=== PATIENT | female | born 1960 | race Two or more races ===

== ENCOUNTER 2018-11-26 12:18 | Emergency (ER) | payer BC, OTHER ==
[2018-11-26 12:27] VITALS: BMI 28.8
--- NOTE | 2018-11-26 13:39 | PDOC ---
History of Present Illness - General Chief Complaint: Psychiatric Stated Complaint: PCP SENT/BP PROBLEM Time Seen by Provider: 11/26/18 13:38 - History of Present Illness Initial Comments: 11/26/18 13:38 The patient denies chest pain, shortness of breath, headache and dizziness. Denies fever, chills, nausea, vomit, diarrhea and constipation. Denies dysuria, frequency, urgency and hematuria. Past History - Past Medical History Allergies/Adverse Reactions: Allergies Allergy/AdvReac Type Severity Reaction Status Date / Time Penicillins Allergy Verified 11/26/18 13:15 Sulfa (Sulfonamide Allergy Verified 11/26/18 13:15 Antibiotics) Home Medications: Ambulatory Orders NK [No Known Home Medication] 11/26/18 COPD: No - Suicide/Smoking/Psychosocial Hx Smoking History: Never smoked Review of Systems - Review of Systems Comments:: 11/26/18 13:38 GENERAL/CONSTITUTIONAL: No fever or chills. No weakness. HEAD, EYES, EARS, NOSE AND THROAT: No change in vision. No ear pain or discharge. No sore throat. CARDIOVASCULAR: No chest pain or shortness of breath RESPIRATORY: No cough, wheezing, or hemoptysis. GASTROINTESTINAL: No nausea, vomiting, diarrhea or constipation. GENITOURINARY: No dysuria, frequency, or change in urination. MUSCULOSKELETAL: No joint or muscle swelling or pain. No neck or back pain. SKIN: No rash NEUROLOGIC: No headache, vertigo, loss of consciousness, or change in strength/ sensation. ENDOCRINE: No increased thirst. No abnormal weight change HEMATOLOGIC/LYMPHATIC: No anemia, easy bleeding, or history of blood clots. ALLERGIC/IMMUNOLOGIC: No hives or skin allergy. *Physical Exam - Vital Signs Last Vital Signs Temp Pulse Resp BP Pulse Ox 98.1 F 115 H 26 H 178/107 H 99 11/26/18 12:26 11/26/18 12:26 11/26/18 12:26 11/26/18 12:26 11/26/18 12:26 - Physical Exam Comments: 11/26/18 13:38 GENERAL: Awake, alert, and fully oriented, in no acute distress HEAD: No signs of trauma, normocephalic, atraumatic EYES: PERRLA, EOMI, sclera anicteric, conjunctiva clear ENT: Auricles normal inspection, hearing grossly normal, nares patent, oropharynx clear without exudates. Moist mucosa NECK: Normal ROM, supple, no lymphadenopathy, JVD, or masses LUNGS: No distress, speaks full sentences, clear to auscultation bilaterally HEART: Regular rate and rhythm, normal S1 and S2, no murmurs, rubs or gallops, peripheral pulses normal and equal bilaterally. ABDOMEN: Soft, nontender, normoactive bowel sounds. No guarding, no rebound. No masses EXTREMITIES: Normal inspection, Normal range of motion, no edema. No clubbing or cyanosis. NEUROLOGICAL: Cranial nerves II through XII grossly intact. Normal speech, normal gait, no focal sensorimotor deficits SKIN: Warm, Dry, normal turgor, no rashes or lesions noted. *DC/Admit/Observation/Transfer - Referrals Referrals: ON STAFF,NOT [Primary Care Provider] - - Patient Instructions - Post Discharge Activity
[2018-11-26] MEDS ORDERED: ALPRAZolam 0.25 MG TABLET PO ONE (14:39)
[2018-11-26] MEDS ORDERED: ALPRAZolam 0.25 MG TABLET ONE (14:57)
[2018-11-26 15:04] LABS: BASO % 0.5 % (0-2.0); EOS % 0.7 % (0-4.5); HEMATOCRIT 37.5 % (32.4-45.2); HEMOGLOBIN 12.4 GM/dL (10.7-15.3); LYMPH % 20.8 % (8-40); MCH 29.4 pg (25.7-33.7); MEAN CELL VOLUME 89.2 fl (80-96); MEAN PLT VOLUME 8.3 fl (7.5-11.1); MONO % 5.4 % (3.8-10.2); NEUT % 72.6 % (42.8-82.8); PLATELET COUNT 258 K/MM3 (134-434); RBC 4.21 M/mm3 (3.60-5.2); RDW 14.5 % (11.6-15.6)
[2018-11-26 15:16] LABS: ALBUMIN 4.3 g/dl (3.4-5.0); BILIRUBIN,TOTAL 0.4 mg/dL (0.2-1); CALCIUM 9.4 mg/dL (8.5-10.1); CREATININE 0.8 mg/dL (0.55-1.3); POTASSIUM 3.6 mmol/L (3.5-5.1); TOT PROT 7.4 g/dl (6.4-8.2)
--- NOTE | 2018-11-26 15:58 | PDOC ---
Documentation entered by Rema James SCRIBE, acting as scribe for Sreedhar Montoya MD. Sreedhar Montoya MD: This documentation has been prepared by the Erika dukes Nirvannie, SCRIBE, under my direction and personally reviewed by me in its entirety. I confirm that the documentation accurately reflects all work, treatment, procedures, and medical decision making performed by me. History of Present Illness - General Chief Complaint: Psychiatric Stated Complaint: PCP SENT/BP PROBLEM Time Seen by Provider: 11/26/18 13:38 History Source: Patient Exam Limitations: No Limitations - History of Present Illness Initial Comments: 11/26/18 15:27 The patient is a 58 year old female, with no significant past medical history, who presents to the emergency department with, elevated blood pressure and increased anxiety. As per patient, last night she began feeling lightheaded, nauseous, palpitations, tremors, and short of breath. She notes her symptoms were similar to previous panic attacks (approx. 50/lifetime), however, she went to urgent care for further evaluation. Patient was advised at urgent care to report to the ED for further evaluation secondary to elevated blood pressure ( 180/100s). She notes increased anxiety over the past week secondary to her mother being sick. She denies any chest pain, fever, chills, urinary/bowel incontinence, or change in strength/sensation. Allergies: NKDA Social history: Visiting from [place]. Past History - Past Medical History Allergies/Adverse Reactions: Allergies Allergy/AdvReac Type Severity Reaction Status Date / Time Penicillins Allergy Verified 11/26/18 13:15 Sulfa (Sulfonamide Allergy Verified 11/26/18 13:15 Antibiotics) Home Medications: Ambulatory Orders NK [No Known Home Medication] 11/26/18 COPD: No - Suicide/Smoking/Psychosocial Hx Smoking History: Never smoked Review of Systems - Review of Systems Able to Perform ROS?: Yes Comments:: 11/26/18 15:28 CONSTITUTIONAL: No reported: Fever, Chills, Diaphoresis, Generalized Weakness, Malaise, Loss of Appetite HEENT: No reported: Rhinorrhea, Nasal Congestion, Throat Pain, Throat Swelling, Difficulty Swallowing, Mouth Swelling, Ear Pain, Eye Pain, Visual Changes CARDIOVASCULAR: Present: Palpitations No reported: Chest Pain, Syncope, Irregular Heart Rate, Lightheadedness, Peripheral Edema RESPIRATORY: Present: Shortness of Breath No reported: Cough, SOB with Exertion, Orthopnea, Wheezing, Stridor, Hemoptysis GASTROINTESTINAL: Present: Nausea No reported: Abdominal pain, Abdominal Distension,Vomiting, Diarrhea, Constipation, Melena, Hematochezia GENITOURINARY: No reported: Dysuria, Frequency, Urgency, Hesitancy, Flank Pain, Genital Pain MUSCULOSKELETAL: No reported: Myalgia, Arthralgia, Joint Swelling, Back pain, Neck Pain SKIN: No reported: Rash, Itching, Pallor HEMEATOLOGIC/IMMUNOLOGIC: No reported: Easy Bleeding, Easy Bruising, Lymphadenopathy, Frequent infections ENDOCRINE: No reported: Unexplained Weight Gain, Unexplained Weight Loss, Heat Intolerance , Cold Intolerance NEUROLOGIC: Present: +Lightheadedness No reported: Headache, Focal Weakness, Paresthesias, Vertigo, Unsteady Gait, Seizure, Mental Status Changes, Incontinence PSYCHIATRIC: No reported: Anxiety, Depression All Other Systems: Reviewed and Negative *Physical Exam - Vital Signs Last Vital Signs Temp Pulse Resp BP Pulse Ox 98.1 F 115 H 26 H 178/107 H 99 11/26/18 12:26 11/26/18 12:26 11/26/18 12:26 11/26/18 12:26 11/26/18 12:26 - Physical Exam Comments: 11/26/18 15:30 GENERAL: The patient is awake, alert, and fully oriented, Nontoxic - in no acute distress. HEAD: Normocephalic, atraumatic. EYES: extraocular movements intact, sclera anicteric, conjunctiva clear. ENT: Normal voice, Moist mucous membranes. NECK: Normal range of motion, supple LUNGS: Breath sounds equal, clear to auscultation bilaterally. No wheezes, no rhonchi, no rales. HEART: Regular rate and rhythm, without murmur, rub or gallop. ABDOMEN: Soft, nontender, No guarding, no rebound.No CVA tenderness EXTREMITIES: Normal range of motion, no edema. No cyanosis. No erythema, or tenderness. NEUROLOGICAL: No facial assymetry, Normal speech, PSYCH: Normal mood, normal affect. SKIN: Warm, Dry, normal turgor, ED Treatment Course - LABORATORY CBC & Chemistry Diagram: 11/26/18 14:41 11/26/18 14:41 - ADDITIONAL ORDERS Additional order review: Laboratory Results 11/26/18 14:41 Sodium 141 Potassium 3.6 Chloride 106 Carbon Dioxide 29 Anion Gap 7 L BUN 15 Creatinine 0.8 Est GFR (CKD-EPI)AfAm 92.87 Est GFR (CKD-EPI)NonAf 80.13 Random Glucose 98 Calcium 9.4 Total Bilirubin 0.4 AST 14 L ALT 23 Alkaline Phosphatase 99 Total Protein 7.4 Albumin 4.3 11/26/18 14:41 RBC 4.21 MCV 89.2 MCHC 33.0 RDW 14.5 MPV 8.3 Neutrophils % 72.6 Lymphocytes % 20.8 Monocytes % 5.4 Eosinophils % 0.7 Basophils % 0.5 - Medications Given in the ED: ED Medications Discontinued Medications Generic Name Dose Route Start Last Admin Trade Name Freq PRN Reason Stop Dose Admin Alprazolam 0.25 mg 11/26/18 14:39 11/26/18 15:00 Xanax - PO 11/26/18 14:40 0.25 mg ONCE ONE Administration Medical Decision Making - Medical Decision Making 11/26/18 15:37 labs reviewed and is unremarkable No signs of anemia, metabolic derangements EKG is unremarkable I suspect the patient's symptoms are secondary to anxiety/panic attack will dc with pmd fu return precautions were discused will give pt a few doses of xanax to help her cope with recent stressors I discussed the physical exam findings, ancillary test results and final diagnoses with the patient. I answered all of the patient's questions. The patient was satisfied with the care received and felt comfortable with the discharge plan and treatment plan. The patient will call their primary care physician within 24 hours to arrange follow-up and will return to the Emergency Department with any new, persistent or worsening symptoms. 11/26/18 15:38 *DC/Admit/Observation/Transfer Diagnosis at time of Disposition: Panic attack - Discharge Dispostion Disposition: HOME Condition at time of disposition: Improved Decision to Admit order: No - Referrals Referrals: ON STAFF,NOT [Primary Care Provider] - - Patient Instructions Printed Discharge Instructions: DI for Anxiety -- Adult Additional Instructions: Return to the emergency department immediately with ANY new, persistent or worsening symptoms. You MUST call and follow up with your doctor tomorrow for further evaluation of your symptoms. Results were discussed with you. Please make sure your doctor reviews the results of your emergency evaluation. Print Language: AZERI - Post Discharge Activity
[2018-11-26 17:16] VITALS: BP 134/87; PULSE 75; TEMP 99.6
--- NOTE | 2018-11-27 09:55 | EKG ---
Test Reason : Blood Pressure : / mmHG Vent. Rate : 088 BPM Atrial Rate : 088 BPM P-R Int : 180 ms QRS Dur : 084 ms QT Int : 382 ms P-R-T Axes : 067 066 040 degrees QTc Int : 462 ms NORMAL SINUS RHYTHM POSSIBLE LEFT ATRIAL ENLARGEMENT NONSPECIFIC ST ABNORMALITY ABNORMAL ECG NO PREVIOUS ECGS AVAILABLE Confirmed by SCOTTY MURRAY, ROSANGELA ([id number]) on 11/27/2018 9:54:28 AM Referred By: Confirmed By:ROSANGELA FAJARDO MD
== END 2018-11-26 17:16 | disposition home or self-care (01) ==
LOC: JER 12:18
DX: F41.0 Panic disorder [episodic paroxysmal anxiety] (principal)
CPT/HCPCS: 36415; 80053; 85025; 93005; 93010; 99282-25